=== PATIENT | female | born 1970 | race Caucasian/White ===

== ENCOUNTER 2017-03-16 02:54 | Emergency (ER) | payer BC ==
[~2017-03-16] VITALS: Ht 149.9 cm; Wt 83.9 kg
[~2017-03-16 02:54] MED LIST: FARXIGA5 MG PO; GLUCOPHAGE500 M1 PO; ONEXTON 1.2%-33.5 GM TOP; PREMARIN0.625 MG PO; TRULICITY0.75 MG/0. SUBCUT; ULTRAM50 MG PO
== END 2017-03-16 03:55 | disposition short-term general hospital (02) ==
LOC: ER 02:54
DX: J06.9 Acute upper respiratory infection, unspecified (principal); H66.41 Suppurative otitis media, unspecified, right ear; H66.92 Otitis media, unspecified, left ear; E11.9 Type 2 diabetes mellitus without complications; Z90.49 Acquired absence of other specified parts of digestive tract; Z98.890 Other specified postprocedural states